=== PATIENT | male | born 1960 | race Hispanic/Latino ===

== ENCOUNTER 2021-10-06 10:49 | Outpatient (CLI) | payer BC, SELFPAY ==
--- NOTE | 2021-10-06 | EST_ITS ---
Patient Info Name: Driss Spann Age: 61 years : 1960 Gender: Male Ht: 66 in Wt: 179 lbs BSA: 1.97 m2 HR: 57 bpm BP: 135 / 101 mmHg Heart Rhythm: Sinus Rhythm Exam Date: 10/06/2021 11:12 AM Exam Location: [facility] Stress Patient Status: Outpatient Admit Date: 10/06/2021 Staff Ordering Physician: EliudYoselin Attending Provider: BettyYoselin Exercise Technologist: Fabby Toney CT Exercise Physician: Krzysztof Brar DO Exam Type: CA stress test treadmill Study Info Indications R07.9 - Chest pain, unspecified An exercise stress test was performed. Summary 1. 1. Negative [facility] exercise stress test for ischemic ST changes by ECG criteria. 2. 2. Good functional capacity, achieving 10.9 METs of workload. 3. 3. Baseline diastolic hypertension. 4. 4. Appropriate HR response to exercise. 5. 5. Appropriate HR recovery at 1 minute post exercise. 6. 6. No imaging with stress testing. 7. 7. Patient informed of the above results. Protocol: [place] Stress ECG Details Stage: REST Duration (min): 9 min : 55 sec Speed (mph): 0.0 Grade (%): 0 HR (bpm): 66 SBP (mmHg): 135 DBP (mmHg): 100 METS: --- Stage: STAGE 1 Duration (min): 1 min : 0 sec Speed (mph): 1.7 Grade (%): 10 HR (bpm): 75 SBP (mmHg): 135 DBP (mmHg): 100 METS: --- Stage: STAGE 1 Duration (min): 2 min : 0 sec Speed (mph): 1.7 Grade (%): 10 HR (bpm): 78 SBP (mmHg): 135 DBP (mmHg): 100 METS: --- Stage: STAGE 1 Duration (min): 3 min : 0 sec Speed (mph): 1.7 Grade (%): 10 HR (bpm): 83 SBP (mmHg): 135 DBP (mmHg): 100 METS: --- Stage: STAGE 2 Duration (min): 1 min : 0 sec Speed (mph): 2.5 Grade (%): 12 HR (bpm): 90 SBP (mmHg): 135 DBP (mmHg): 100 METS: --- Stage: STAGE 2 Duration (min): 2 min : 0 sec Speed (mph): 2.5 Grade (%): 12 HR (bpm): 95 SBP (mmHg): 135 DBP (mmHg): 100 METS: --- Stage: STAGE 2 Duration (min): 3 min : 0 sec Speed (mph): 2.5 Grade (%): 12 HR (bpm): 99 SBP (mmHg): 129 DBP (mmHg): 53 METS: --- Stage: STAGE 3 Duration (min): 1 min : 0 sec Speed (mph): 3.4 Grade (%): 14 HR (bpm): 110 SBP (mmHg): 136 DBP (mmHg): 91 METS: --- Stage: STAGE 3 Duration (min): 2 min : 0 sec Speed (mph): 3.4 Grade (%): 14 HR (bpm): 121 SBP (mmHg): 136 DBP (mmHg): 91 METS: --- Stage: STAGE 3 Duration (min): 3 min : 0 sec Speed (mph): 3.4 Grade (%): 14 HR (bpm): 127 SBP (mmHg): 136 DBP (mmHg): 91 METS: --- Stage: STAGE 4 Duration (min): 0 min : 21 sec Speed (mph): 4.2 Grade (%): 16 HR (bpm): 133 SBP (mmHg): 136 DBP (mmHg): 91 METS: --- Stage: RECOVERY Duration (min): 0 min : 38 sec Speed (mph): 0.0 Grade (%): 0 HR (bpm): 126 SBP (mmHg): 136 DBP (mmHg):
== END 2021-10-06 10:50 | disposition home or self-care (01) ==
PROVIDERS: PCP Physician Assistant; Visit Provider Physician Assistant
DX: R07.89 Other chest pain (principal)
CPT/HCPCS: 93017